=== PATIENT | male | born 1950 | race Caucasian/White ===

== ENCOUNTER → 2021-11-08 | Outpatient (CLI) | payer MEDICARE, OTHER ==
[2021-11-08 12:08] LABS: BASOPHILS % (AUTO) 1 % (0-10); EOSINOPHILS # (AUTO) 0.2 10^3/uL (0.0-0.3); EOSINOPHILS % (AUTO) 5 % (0-10); HEMATOCRIT 46 % (40-54); HEMOGLOBIN 15.6 g/dL (13.3-17.7); LYMPHOCYTES # (AUTO) 1.7 10^3/uL (1.0-4.0); LYMPHOCYTES % (AUTO) 34 % (12-44); MEAN CORPUSCULAR HEMOGLOBIN 30 pg (25-34); MEAN CORPUSCULAR HGB CONC 34 g/dL (32-36); MEAN CORPUSCULAR VOLUME 89 fL (80-99); MEAN PLATELET VOLUME 10.4 fL (9.0-12.2); MONOCYTES # (AUTO) 0.4 10^3/uL (0.0-1.0); MONOCYTES % (AUTO) 9 % (0-12); NEUTROPHILS # (AUTO) 2.4 10^3/uL (1.8-7.8); NEUTROPHILS % (AUTO) 51 % (42-75); PLATELET COUNT 197 10^3/uL (130-400); WHITE BLOOD COUNT 4.8 10^3/uL (4.3-11.0)
[2021-11-08 12:09] LABS: BILIRUBIN,URINE NEGATIVE (NEGATIVE); CLARITY,URINE CLEAR; COLOR,URINE YELLOW; GLUCOSE, URINE (UA) NEGATIVE (NEGATIVE); KETONES,URINE NEGATIVE (NEGATIVE); LEUKOCYTE ESTERASE ,URINE NEGATIVE (NEGATIVE); NITRITE,URINE NEGATIVE (NEGATIVE); PROTEIN,URINE NEGATIVE (NEGATIVE)
[2021-11-08 12:14] LABS: BACTERIA,URINE NEGATIVE /HPF; WBC,URINE 0-2 /HPF
[2021-11-08 12:20] LABS: PROTHROMBIN TIME PATIENT 13.4 SEC (12.2-14.7)
--- NOTE | 2021-11-08 12:22 | Diagnostic Imaging Report ---
INDICATION: Pain. PA and lateral views were obtained FINDINGS: The heart size, mediastinal configuration, and pulmonary vascularity are within normal limits. There is no pleural effusion, pneumothorax, or pneumonia. The osseous structures are unremarkable. IMPRESSION: No acute cardiopulmonary abnormality. Dictated by: Dictated on workstation # [id number]
[2021-11-08 12:25] LABS: CALCIUM 9.5 MG/DL (8.5-10.1); CREATININE SERUM 1.04 MG/DL (0.60-1.30)
== END ==
LOC: CARD 12:00
PROVIDERS: ATTEND Orthopaedic Surgery
DX: Z01.810 Encounter for preprocedural cardiovascular examination (principal); R07.9 Chest pain, unspecified
CPT/HCPCS: 36415; 71046; 80048; 81000; 85025; 85610; 85730; 93005

== ENCOUNTER → 2021-11-08 | Outpatient (CLI) | payer MEDICARE, OTHER ==
--- NOTE | 2021-11-08 10:28 | Diagnostic Imaging Report ---
INDICATION: Left knee pain. TIME OF EXAM: 10:10 AM Multiple views of the left knee were obtained. There is significant medial compartmental degenerative change with complete loss of the joint space. Lateral compartment is fairly well-maintained. There is moderate patellofemoral degenerative change. No fracture, dislocation or effusion is seen. IMPRESSION: Degenerative changes, most marked involving the medial compartment. No acute bony abnormality is detected. Dictated by: Dictated on workstation # [id number]
== END ==
LOC: ORTHO 09:53
PROVIDERS: ATTEND Orthopaedic Surgery
DX: M17.0 Bilateral primary osteoarthritis of knee (principal)
CPT/HCPCS: 73564; G0463; 99203

== ENCOUNTER 2021-11-15 12:12 | Outpatient (RCR) | payer MEDICARE, OTHER ==
[~2021-11-15] VITALS: Ht 170 cm; Wt 98.3 kg
[2021-11-15 13:05] VITALS: BP 135/80
== END 2021-11-15 13:34 | disposition home or self-care (01) ==
LOC: PREOP 12:12
PROVIDERS: ATTEND Orthopaedic Surgery
DX: Z01.812 Encounter for preprocedural laboratory examination (principal); M17.12 Unilateral primary osteoarthritis, left knee; Z20.822 Contact with and (suspected) exposure to COVID-19
CPT/HCPCS: 86850; 86900; 86901; 87081; 87635

== ENCOUNTER 2021-11-19 07:46 | Inpatient (IN) | payer MEDICARE, OTHER ==
[~2021-11-19] VITALS: Ht 170 cm; Wt 98.3 kg
[2021-11-19] VITALS (13 sets, daily range): BP systolic 129–162; BP diastolic 75–112
[2021-11-19] MEDS ORDERED: SODIUM CHLORIDE 0.9% IRRIGATIO 150 ML, TRANEXAMIC ACID INJECTION 3,000 MG IR ONE ×2 (08:30)
[2021-11-19] MEDS ORDERED: ceFAZolin 2 GM IV Premixed 50 ML IV ONE (08:30)
[2021-11-19] MEDS ORDERED: MIDAZOLAM 2 MG/2 ML (VERSED) VIAL ONE (08:36)
[2021-11-19] MEDS ORDERED: BUPIVACAINE 0.25% 30 ML (SENSORCAINE) VIAL ONE (08:36)
[2021-11-19] MEDS: LACTATED RINGERS 1,000 ML IV PRN ×2 (09:06→10:20)
[2021-11-19] MEDS ORDERED: LIDOCAINE PF 2% 5 ML (XYLOCAINE) VIAL ONE (09:38)
[2021-11-19] MEDS ORDERED: proPOfol 200 MG/20 ML (DIPRIVAN) VIAL IV ONE (09:38)
[2021-11-19] MEDS ORDERED: ONDANSETRON 4 MG/2 ML (SDV) Z0FRAN ONE (09:38)
[2021-11-19] MEDS ORDERED: ROCURONIUM 50 MG/5 ML (ZEMURON) VIAL IV ONE (09:38)
[2021-11-19] MEDS ORDERED: fentaNYL INJ 100 MCG/2 ML AMP ONE ×2 (09:38→11:23)
--- NOTE | 2021-11-19 09:40 | Progress Note-Pre Operative ---
Pre-Operative Progress Note H&P Reviewed The H&P was reviewed, patient examined and no changes noted. Date Seen by Provider: Nov 19, 2021 Time Seen by Provider: :30 Date H&P Reviewed: Nov 19, 2021 Time H&P Reviewed: 09:30 Pre-Operative Diagnosis: L Knee Primary OA UMA MINOR MD Nov 19, 2021 09:40
[2021-11-19] MEDS ORDERED: GLYCOPYRROLATE 0.2 MG/ML (ROBINUL) 2 ML VIAL ONE (10:32)
[2021-11-19] MEDS ORDERED: SEVOFLURANE (ULTANE) 15 ML INHAL SOLN ONE (12:14)
--- NOTE | 2021-11-19 12:26 | Operative Report - Ortho ---
Operative Report Surgeon (s)/Driver/Guide (s) Surgeon UMA MINOR MD Driver/Guide n/a Pre-Operative Diagnosis Left Knee Primary Osteoarthritis Post-Operative Diagnosis same Operative Report Date of Procedure: Nov 19, 2021 Name of Procedure Performed: Left Total Knee Arthroplasty Description & Findings After obtaining informed consent and marking the patient in the preoperative holding area, the patient did receive IV antibiotics. Patient was taken to the operating room and anesthesia was induced. Surgical timeout was taken. The left lower extremity was prepped and draped in the usual sterile fashion. Incision was made and carried down to fascia. Arthrotomy was performed on the medial side of the patella. Patella was retracted laterally and knee was flexed. Found to have circumferential osteophtye around the distal femur as well as exposed bone in the medial compartment. Hole was made in the distal femur for the intramedullary distal femoral cutting guide. Resection was made then the femur was sized as a 6. 4-in-1 block for a size [address]. Anterior cut was made and there was no notch. Posterior cut was made followed by the chamfers. Box cut was performed. Lug holes were drilled. Attention was turned to the tibial side, extramedullary tibial guide was put into place and aligned with the tibial crest. It was set to take 2 mm off of the affected medial side. Drop geri was used to confirm alignment. Resection was made and was parallel to the joint line. Tibial bone block was removed. Lamina director of media was put into place and the menisci and posterior osteophytes were removed. The knee was trialed with a size 6 femur and a size 5 tibia with a 9 mm poly trial. It was found to come out to full extension and flexed beyond 120 degrees. It was stable to varus and valgus stress throughout its range of motion. This was accepted. Knee was brought out into extension and the patella was prepared for an inset patellar button. Patellar trial was placed and this tracked well through the groove of the trial femur. Trial implants were removed. Tibial trial was pinned and punched. The cut bone surfaces were lavaged with pulsatile normal saline. Implants were opened and assembled on the back table. Cement was mixed. Cement was applied to the cut bone surface as well as the implant surface. A size 5 tibial component was impacted into placed and excess cement was removed using a [employer]. A size 6 femoral component was impacted into place and excess cement was removed using a [employer]. Tibial tray was lavaged with saline. A 9 mm thick polyethylene component was locked into placed and the locking mechanism was checked. Knee was brought into extension. Patellar surface was irrigated, dried, and then cement was applied. Patellar component was clamped into place and excess cement was removed using the [employer]. The knee was irrigated with normal saline. Irrigation was removed and tranexamic acid was placed. Once the cement had set, the knee was once again trialed; found to come to full extension, flexed beyond 120 degrees, and was stable to varus and valgus stress. Further tranexamic acid was applied for hemostasis. Tourniquet was dropped and electrocautery was used for further hemostasis. Fascial layer was closed with #1 Ethibond. The subcutaneous layer was closed with 2-0 Vicryl. The skin was closed with a running subcuticular 3-0 V-loc. Wound was dressed with mastisol, steri-strips, xeroform, 4x4s, ABD, webril, and KATE wrap. Patient tolerated the procedure well and was stable to the recovery room. Anesthesia Type General plus regional Estimated Blood Loss 150 mL Specimen(s) collected/removed none UMA MINOR MD Nov 19, 2021 12:26
[2021-11-19] MEDS ORDERED: MEPERIDINE (DEMEROL) INJ 50 MG/ML IVP ONE (12:30)
[2021-11-19] MEDS ORDERED: HYDROmorphone 2 MG/ML VIAL (DILAUDID) IV ONE (12:30)
[2021-11-19] MEDS ORDERED: ACETAMINOPHEN 500 MG TAB (TYLENOL) PO PRN (12:30)
[2021-11-19] MEDS ORDERED: MILK OF MAGNESIA 400 MG/5 ML 30 ML UDC PO PRN (12:30)
[2021-11-19] MEDS ORDERED: BISACODYL 5 MG (DULCOLAX) TABLET PO PRN (12:30)
[2021-11-19] MEDS ORDERED: morphine INJ 10 MG/ML 1ML (SYR OR VIAL) IVP ONE (12:30)
[2021-11-19] MEDS ORDERED: ONDANSETRON 4 MG/2 ML (SDV) Z0FRAN IVP PRN (12:30)
[2021-11-19] MEDS ORDERED: ONDANSETRON 4 MG/2 ML (SDV) Z0FRAN IV PRN (12:30)
--- NOTE | 2021-11-19 12:56 | Diagnostic Imaging Report ---
INDICATION: Postop left knee. TIME OF EXAM: 12:35 PM 2 views of the left knee demonstrate postoperative changes of total knee arthroplasty. Prosthetic elements are in good position. No fracture loosening is seen. IMPRESSION: Satisfactory postop appearance to the left knee. Dictated by: Dictated on workstation # [id number]
[2021-11-19] MEDS ORDERED: HYDROmorphone 2 MG/ML VIAL (DILAUDID) ONE (13:05)
[2021-11-19] MEDS ORDERED: NS IV 1000 ML 1,000 ML ONE (14:13)
--- NOTE | 2021-11-19 14:18 | Physical Therapy Evaluation ---
PT Evaluation-General Medical Diagnosis Admission Date Nov 19, 2021 at 07:46 Medical Diagnosis: s/p L TKA Onset Date: Nov 19, 2021 Therapy Diagnosis Therapy Diagnosis: Weakness, debility Precautions Precautions/Isolations: Fall Prevention, Standard Precautions Weight Bear Status Right Lower Extremity: Right Full Weight Bearing Left Lower Extremity: Left Weight Bearing/Tolerated Referral Physician: Butch Reason for Referral: Evaluation/Treatment Medical History Current History s/p elective left TKR Reviewed History: Yes Social History Home: Single Level Current Living Status: Spouse Entry Into Home: Stairs With Railing PT Steps Into Home: 3 Prior Prior Level of Function SCALE: Activities may be completed with or without assistive devices. 5-Nyvkcfmbga-nzbgcdz completes the activity by him/herself with no assistance from a helper. 5-Set-up or Clean-up Assistance-helper sets up or cleans up; patient completes activity. [place] assists only prior to or following the activity. 4-Supervision or Touching Assistance-helper provides verbal cues and/or janae reji/steadying and/or contact guard assistance as patient completes activity. Assistance may be provided throughout the activity or intermittently. 3-Partial/Moderate Assistance-helper does LESS THAN HALF the effort. [place] lifts, holds or supports trunk or limbs, but provides less than half the effort. 2-Substantial/Maximal Assistance-helper does MORE THAN HALF the effort. [place] lifts or holds trunk or limbs and provides more than half the effort. 5-Ddionyeyj-tyurmd does ALL the effort. Patient does none of the effort to complete the activity. Or, the assistance of 2 or more helpers is required for the patient to complete the activity. If activity was not attempted, code reason: 7-Patient Refused. 9-Not Applicable-not attempted and the patient did not perform the activity before the current illness, exacerbation or injury. 10-Not Attempted due to Environmental Limitations-(lack of equipment, weather restraints, etc.). 88-Not Attempted due to Medical Conditions or Safety Concerns. Bed Mobility: 6 Transfers (B,C,W/C): 6 Gait: 6 Stairs: 6 Indoor Mobility (Ambulation): Independent Stairs: Independent Prior Devices Use: None PT Evaluation-Current Subjective Patient presented in bed s/p L TKA on 11/19/21. Patient agrees to application of CPM machine. 09/20/22: Patient presents laying in bed and reports that he didn't sleep very well last night due to pain in L knee. Patient reports that CPM machine was not taken off until 2200 last night. Patient agrees to participate in therapy this morning. Pain Numeric Pain Scale: 4 Location: Left Location Body Site: Knee Pain Description: Acute Objective Patient Orientation: Person, Place, Time, Situation ROM/Strength ROM Lower Extremities CPM set at 0-50 degrees Strength Lower Extremities R LE 4+/5 L LE: not tested due to recent surgery Neuromuscular (Tone, Coordination, Reflexes) grossly intact Sensory Vision: Wears Glasses Hearing: Functional Sensation Right Lower Extremit: Intact Sensation Left Lower Extremity: Intact Transfers Roll Left to Right (QC): 6 Lying to Sitting/Side of Bed(Q: 6 Sit to Stand (QC): 4 Chair/Lus-la-Hpazs Xfer(QC): 4 Gait Does the Patient Walk?: Yes Mode of Locomotion: Walk Anticipated Mode of Locomotion: Walk Walk 10 feet (QC): 4 Walk 50 ft with 2 Turns(QC): 4 Walk 150 ft (QC): 4 Distance: 200' Gait Assistive Device: FWW Comments/Gait Description Patient ambulated for 200' with FWW. Patient ambulated with step to gait pattern at start but moved to a step through gait pattern after some time. Balance Sitting Static: Normal Sitting Dynamic: Normal Standing Static: Normal Standing Dynamic: Fair Treatment CPM started on 11/19/21 at 0-50 degrees. Eval will conclude tomorrow 11/20/21: Supine exercises: quad sets, heel slides, SLR x10 ea seated exercises: LAQ x10 Assessment/Needs Patient performed supine and seated exercises and ambulated during therapy session. Patient required assistance for SLR. Patient ambulated for 200' with FWW and CGA. Patient knee ROM is about 70 degrees of flexion and is still lacking full extension. Rehab Potential: Good PT Alf Goals Internal Salesperson Goals PT Internal Salesperson Goals Time Frame: Nov 24, 2021 Roll Left & Right (QC): 6 Sit to Lying (QC): 6 Lying-Sitting on Side/Bed(QC): 6 Sit to Stand (QC): 6 Chair/Whi-ac-Hgtqz Xfer(QC): 6 Toilet Transfer (QC): 6 Does the Patient Walk: Yes Walk 10 feet (QC): 6 Walk 50ft with 2 Turns (QC): 6 Walk 150 ft (QC): 6 Walking 10ft on Uneven Surface: 6 1 Step (curb) (QC): 6 PT Plan Problem List Problem List: Activity Tolerance, Functional Strength, Safety, Balance, Gait, Transfer, Bed Mobility, ROM Treatment/Plan Treatment Plan: Continue Plan of Care Treatment Plan: Bed Mobility, Education, Functional Activity Susan, Functional Strength, Gait, Safety, Therapeutic Exercise, Transfers Treatment Duration: Nov 24, 2021 Frequency: 11 times per week Estimated Hrs Per Day: .5 hour per day Patient and/or Family Agrees t: Yes Time/GCodes Time In: 735 Time Out: 753 Total Billed Treatment Time: 18 Total Billed Treatment 1 Visit CPM/PADS [id number]; 11 min 11/20/21 1 Visit EVModC 18 min YI MASON PT Nov 19, 2021 14:18
[2021-11-19] MEDS: NS IV 1000 ML 1,000 ML IV SCH (14:37)
[2021-11-19] MEDS: ceFAZolin 2 GM IV Premixed 50 ML IV SCH (17:42)
[2021-11-19] MEDS: ASPIRIN E.C. 81 MG (ECOTRIN) TAB PO SCH (17:43)
[2021-11-19] MEDS: CELECOXIB 100 MG (CeleBREX) CAP PO SCH (20:02)
[2021-11-19] MEDS: DOCUSATE SODIUM 100 MG (COLACE) CAP PO SCH (20:02)
[2021-11-20] MEDS: ceFAZolin 2 GM IV Premixed 50 ML IV SCH ×2 (00:06→10:28)
[2021-11-20] MEDS: morphine INJ 4 MG/ML 1 ML (VIAL/SYRINGE) IVP PRN ×2 (00:06→05:09)
[2021-11-20] MEDS: NS IV 1000 ML 1,000 ML IV SCH ×2 (00:06→10:31)
[2021-11-20 03:10] VITALS: BP 134/73
[2021-11-20] MEDS: MULTIVIT W/MINERALS TAB (THERAGRAN M) PO SCH (05:13)
[2021-11-20 05:25] LABS: HEMOGLOBIN 12.8 g/dL (13.3-17.7)
[2021-11-20 08:00] VITALS: BP 138/70
--- NOTE | 2021-11-20 08:17 | Progress Note - Ortho ---
Progress Note Subjective Date of Exam 11/20/21 Chief Complaint POD #1 L TKA HPI/Events since last exam has had some difficulty with pain, doing well with therapy Review of Systems - Allergies: Coded Allergies: No Known Drug Allergies (Unverified , 11/15/21) Home Meds No Active Prescriptions or Reported Meds Objective Exam L Knee: Dressing C/D/I, +DF of ankle, no s/s of DVT Vital Signs Vital Signs Date Time Temp Pulse Resp B/P (MAP) Pulse Ox O2 Delivery O2 Flow Rate FiO2 11/20/21 08:05 Room Air 11/20/21 03:10 36.0 98 21 134/73 (93) 94 Room Air 11/19/21 23:45 37.7 89 20 129/75 (93) 95 NIV CPAP 11/19/21 19:58 37.9 85 20 129/76 (93) 96 Room Air 11/19/21 19:35 Room Air 11/19/21 16:19 OxyMask 2.00 11/19/21 16:00 36.5 65 20 154/77 (102) 95 Room Air 11/19/21 13:20 16 143/84 (103) 99 OxyMask 2 11/19/21 13:20 OxyMask 2 11/19/21 13:10 Room Air 11/19/21 13:10 36.2 10 145/82 (103) 95 Room Air 11/19/21 13:00 10 162/94 (116) 99 OxyMask 1 11/19/21 12:59 OxyMask 1 11/19/21 12:50 OxyMask 1 11/19/21 12:50 10 154/89 (110) 97 OxyMask 2 11/19/21 12:46 153/98 (116) 11/19/21 12:40 14 155/103 (120) 100 OxyMask 4 11/19/21 12:35 OxyMask 4 11/19/21 12:30 20 152/112 (125) 98 OxyMask 8 11/19/21 12:20 OxyMask 8 11/19/21 12:20 36.2 20 138/96 (110) 94 OxyMask 8 11/19/21 12:00 35.7 63 20 161/84 (109) 99 OxyMask 2.00 I & O 11/20/21 06:59 Intake Total 4040 ml Output Total 1575 ml Balance 2465 ml Lab Results Laboratory Tests 11/20/21 05:06: Hemoglobin 12.8L, Hematocrit 38L Imaging 2 views of the left knee dated 11/19/21 were reviewed from PACS and demonstrated prior total knee arthroplasty with components in good position, no complications Assessment and Plan Assessment s/p L TKA Problem List s/p L TKA Plan PT/OT DVT Prophyalxis Plan for home with home health on Final Diagonsis s/p L TKA Level of the visit: Level 3 (postop global) UMA MINOR MD Nov 20, 2021 08:17
[2021-11-20] MEDS ORDERED: NS IV 1000 ML 1,000 ML IV SCH (09:00)
[2021-11-20] MEDS: ASPIRIN E.C. 81 MG (ECOTRIN) TAB PO SCH ×2 (09:45→18:09)
[2021-11-20] MEDS: CELECOXIB 100 MG (CeleBREX) CAP PO SCH ×2 (09:47→19:10)
[2021-11-20] MEDS: DOCUSATE SODIUM 100 MG (COLACE) CAP PO SCH ×2 (09:47→19:10)
--- NOTE | 2021-11-20 10:29 | Occupational Therapy Eval ---
OT Evaluation-General/PLF Medical Diagnosis Admission Date Nov 19, 2021 at 07:46 Medical Diagnosis: s/p L TKA Onset Date: Nov 19, 2021 Therapy Diagnosis Therapy Diagnosis: reduced adl status Precautions Precautions/Isolations: Fall Prevention, Standard Precautions Weight Bear Status Weight Bearing Restriction: Weight Bearing/Tolerated Location Restriction: L LE Referral Physician: Butch Referral Reason: Evaluation/Treatment Medical History Current History POD 1, L TKA. Pt reports living in a single story home with his . Indep with adls and shares iadl responsibilities with his spouse. He was not using any AD prior to admission. Reviewed History: Yes Social History Home: Single Level Current Living Status: Spouse Entry Into Home: Stairs With Railing Steps Into Home: 3 ADL-Prior Level of Function SCALE: Activities may be completed with or without assistive devices. 6-Innxbkgktt-ngrioic completes the activity by him/herself with no assistance from a helper. 5-Set-up or Clean-up Assistance-helper sets up or cleans up; patient completes activity. [place] assists only prior to or following the activity. 4-Supervision or Touching Assistance-helper provides verbal cues and/or touching/steadying and/or contact guard assistance as patient completes activity. Assistance may be provided throughout the activity or intermittently. 3-Partial/Moderate Assistance-helper does LESS THAN HALF the effort. [place] lifts, holds or supports trunk or limbs, but provides less than half the effort. 2-Substantial/Maximal Assistance-helper does MORE THAN HALF the effort. [place] lifts or holds trunk or limbs and provides more than half the effort. 8-Wyqyyiltc-fbwaoq does ALL the effort. Patient does none of the effort to complete the activity. Or, the assistance of 2 or more helpers is required for the patient to complete the activity. If activity was not attempted, code reason: 7-Patient Refused. 9-Not Applicable-not attempted and the patient did not perform the activity before the current illness, exacerbation or injury. 10-Not Attempted due to Environmental Limitations-(lack of equipment, weather restraints, etc.). 88-Not Attempted due to Medical Conditions or Safety Concerns. Self Care: Independent Functional Cognition: Independent DME/Equipment: Bath Chair (built in shower seat), Grab Bars, Shower Drive Self: Yes OT Current Status Subjective Reports pain as 5/10 in L knee. RN aware Appearance Returned to supine in bed, all needs within reach, Supervisor Modern Languages entering room. Mental Status/Objective Patient Orientation: Person, Place, Situation Attachments: IV Current Glasses/Contacts: Yes Hearing Aids: No Dentures/Partials: No Hand Dominance: Right Upper Extremity ROM WFL Upper Extremity Strength WFL ADL-Treatment Oral Hygiene (QC): 4 On/Off Footwear (QC): 3 Toileting Hygiene (QC): 4 Supine<>sit: Min a to bring LLE back into bed. No difficulties exhibited to don/doff R sock. Pt unable to perform task with L sock due to increased pain and limited ROM. He reports that his will be able to assist post d/c. Sit<>stand: SBA. He ambulated to/from bathroom with CGA and use of walker. Cue for walker placement at toilet. He stood to void, Close supervision for safety, no unsteadiness observed. He stood at sink for grooming tasks, sba-cga for safety. Anticipate improved indep with adls once pain subsides and knee rom improves. Education OT Patient Education: Correct positioning, Modified ADL techniques, Purpose of tx/functional activities, Reviewed precautions, Safety issues, Transfer techniques Teaching Recipient: Patient Teaching Methods: Discussion Response to Teaching: Verbalize Understanding OT Chief Scientist Goals Chief Scientist Goals Time Frame: Nov 24, 2021 Oral Hygiene (QC): 6 Toileting Hygiene (QC): 6 Upper Body Dressing (QC): 5 Lower Body Dressing (QC): 5 1=Demonstrate adherence to instructed precautions during ADL tasks. 2=Patient will verbalize/demonstrate understanding of assistive devices/modifications for ADL. 3=Patient will improve strength/tolerance for activity to enable patient to perform ADL's. OT Education/Plan Problem List/Assessment Assessment: Decreased Activ Tolerance, Impaired Funct Balance, Impaired I ADL's, Impaired Self-Care Skills Discharge Recommendations Plan/Recommendations: Continue POC Therapy Discharge Recommendati: Homemaker Support, Home & Family Treatment Plan/Plan of Care Treatment,Training & Education: Yes Patient would benefit from OT for education, treatment and training to promote independence in ADL's, mobility, safety and/or upper extremity function for ADL's. Plan of Care: ADL Retraining, Functional Mobility, Group Exercise/Act as Ind, UE Funct Exercise/Act Treatment Duration: Nov 24, 2021 Frequency: 5 times per week Estimated Hrs Per Day: .25 hour per day Agreement: Yes Rehab Potential: Good Time/GCodes Start Time: 09:52 Stop Time: 10:08 Total Time Billed (hr/min): 16 Billed Treatment Time 1 visit Ivette Clark OT Nov 20, 2021 10:29
[2021-11-20 12:00] VITALS: BP 136/67
--- NOTE | 2021-11-20 14:09 | Anesthesia-General Post-Op ---
General Patient Condition Mental Status/LOC: Same as Preop Cardiovascular: Satisfactory Nausea/Vomiting: Absent Respiratory: Satisfactory Pain: Controlled Complications: Absent Post Op Complications Complications None Follow Up Care/Instructions Patient Instructions None needed. Anesthesia/Patient Condition Patient Condition Patient is doing well, does C/O a minimal sore throat which is to be expected, stable vital signs, no apparent adverse anesthesia problems. VIPIN PINEDO DO Nov 20, 2021 14:09
--- NOTE | 2021-11-20 14:28 | Physical Therapy Daily Note ---
PT Daily Note-Current Subjective Patient was attempting to get back into bed when PT walked in the room and patient agreed to walk and perform some exercises with therapy. Mental Status Patient Orientation: Person, Place, Time, Situation Transfers SCALE: Activities may be completed with or without assistive devices. 5-Iaxocqgwgh-pfwkeyf completes the activity by him/herself with no assistance from a helper. 5-Set-up or Clean-up Assistance-helper sets up or cleans up; patient completes activity. [place] assists only prior to or following the activity. 4-Supervision or Touching Assistance-helper provides verbal cues and/or touching/steadying and/or contact guard assistance as patient completes activity. Assistance may be provided throughout the activity or intermittently. 3-Partial/Moderate Assistance-helper does LESS THAN HALF the effort. [place] lifts, holds or supports trunk or limbs, but provides less than half the effort. 2-Substantial/Maximal Assistance-helper does MORE THAN HALF the effort. [place] lifts or holds trunk or limbs and provides more than half the effort. 7-Jcldvvruy-cnwoib does ALL the effort. Patient does none of the effort to compl ete the activity. Or, the assistance of 2 or more helpers is required for the patient to complete the activity. If activity was not attempted, code reason: 7-Patient Refused. 9-Not Applicable-not attempted and the patient did not perform the activity before the current illness, exacerbation or injury. 10-Not Attempted due to Environmental Limitations-(lack of equipment, weather restraints, etc.). 88-Not Attempted due to Medical Conditions or Safety Concerns. Sit to Lying (QC): 3 (min) Lying to Sitting/Side of Bed(Q: 3 Sit to Stand (QC): 4 Patient required min assist to lift leg back into bed after therapy session Weight Bearing Right Lower Extremity: Right Full Weight Bearing Left Lower Extremity: Left Weight Bearing/Tolerated Gait Training Does the Patient Walk?: Yes Distance: 175' Walk 10 feet (QC): 4 Walk 50 ft with 2 Turns(QC): 4 Walk 150 ft (QC): 4 Gait Assistive Device: FWW Patient required CGA for ambulation with FWW. Patient reported his knee was starting to get more painful and sore after ambulation Exercises Supine Ex: Quad Set, Heel Slides, Straight leg raise Supine Reps: 10 Seated Therapy Exercises: Long arc quads Seated Reps: 10 Assessment Patient completed ambulation and supine and sitting exercises. Patient had minimal difficulty with exercises but did require slight assistance for him to get his foot back in bed. PT Water Superintendent Goals Water Superintendent Goals PT Water Superintendent Goals Time Frame: Nov 24, 2021 Roll Left & Right (QC): 6 Sit to Lying (QC): 6 Lying-Sitting on Side/Bed(QC): 6 Sit to Stand (QC): 6 Chair/Una-ph-Npfil Xfer(QC): 6 Toilet Transfer (QC): 6 Does the Patient Walk: Yes Walk 10 feet (QC): 6 Walk 50ft with 2 Turns (QC): 6 Walk 150 ft (QC): 6 Walking 10ft on Uneven Surface: 6 1 Step (curb) (QC): 6 PT Plan Problem List Problem List: Activity Tolerance, Functional Strength, Safety, Balance, Gait, Transfer, Bed Mobility, ROM Treatment/Plan Treatment Plan: Continue Plan of Care Treatment Plan: Bed Mobility, Education, Functional Activity Susan, Functional Strength, Gait, Safety, Therapeutic Exercise, Transfers Treatment Duration: Nov 24, 2021 Frequency: 11 times per week Estimated Hrs Per Day: .5 hour per day Patient and/or Family Agrees t: Yes Time/GCodes Time In: 1328 Time Out: 1340 Total Billed Treatment Time: 12 Total Billed Treatment 1 Visit FA 12 min YI MASON PT Nov 20, 2021 14:28
[2021-11-20 16:00] VITALS: BP 137/67
[2021-11-20 20:00] VITALS: BP 144/73
[2021-11-20 23:24] VITALS: BP 152/72
[2021-11-21 03:02] VITALS: BP 138/77
[2021-11-21] MEDS: MULTIVIT W/MINERALS TAB (THERAGRAN M) PO SCH (05:09)
[2021-11-21 06:30] LABS: HEMOGLOBIN 12.1 g/dL (13.3-17.7)
[2021-11-21 08:00] VITALS: BP 131/82
[2021-11-21] MEDS: DOCUSATE SODIUM 100 MG (COLACE) CAP PO SCH ×2 (08:24→19:14)
[2021-11-21] MEDS: CELECOXIB 100 MG (CeleBREX) CAP PO SCH ×2 (08:25→19:14)
[2021-11-21] MEDS: ASPIRIN E.C. 81 MG (ECOTRIN) TAB PO SCH ×2 (08:25→18:34)
--- NOTE | 2021-11-21 08:55 | Physical Therapy Daily Note ---
PT Daily Note-Current Subjective Patient presents sitting in his chair and agrees to participate in therapy. Patient reports that his knee is sore this morning. Pain Numeric Pain Scale: 4 Appearance Patient left post tx in recliner eating breakfast with his call light, tray table and all needs met. Mental Status Patient Orientation: Person, Place, Time, Situation Transfers SCALE: Activities may be completed with or without assistive devices. 1-Gccuhixlrx-wrdbemo completes the activity by him/herself with no assistance from a helper. 5-Set-up or Clean-up Assistance-helper sets up or cleans up; patient completes activity. [place] assists only prior to or following the activity. 4-Supervision or Touching Assistance-helper provides verbal cues and/or touching/steadying and/or contact guard assistance as patient completes activity. Assistance may be provided throughout the activity or intermittently. 3-Partial/Moderate Assistance-helper does LESS THAN HALF the effort. [place] lifts, holds or supports trunk or limbs, but provides less than half the effort. 2-Substantial/Maximal Assistance-helper does MORE THAN HALF the effort. [place] lifts or holds trunk or limbs and provides more than half the effort. 7-Btbwdckgj-axiyij does ALL the effort. Patient does none of the effort to complete the activity. Or, the assistance of 2 or more helpers is required for the patient to complete the activity. If activity was not attempted, code reason: 7-Patient Refused. 9-Not Applicable-not attempted and the patient did not perform the activity before the current illness, exacerbation or injury. 10-Not Attempted due to Environmental Limitations-(lack of equipment, weather restraints, etc.). 88-Not Attempted due to Medical Conditions or Safety Concerns. Sit to Stand (QC): 5 Weight Bearing Right Lower Extremity: Right Full Weight Bearing Left Lower Extremity: Left Weight Bearing/Tolerated Gait Training Distance: 200' Walk 10 feet (QC): 4 Walk 50 ft with 2 Turns(QC): 4 Walk 150 ft (QC): 4 Gait Assistive Device: FWW Patient ambulated with FWW and CGA for 200'. Patient performs a step to gait pattern while ambulating. Exercises Seated Therapy Exercises: Ankle pumps, Sit to stand (5), Long arc quads, Hip flexion Seated Reps: 20 Assessment Current Status: Good Progress Patient ambulated and performed sitting exercises during therapy session. Patient required rest breaks during exercises due to fatigue and weakness in his L knee. PT Prison Goals Chief Airline Radio Operator Goals PT Prison Goals Time Frame: Nov 24, 2021 Roll Left & Right (QC): 6 Sit to Lying (QC): 6 Lying-Sitting on Side/Bed(QC): 6 Sit to Stand (QC): 6 Chair/Qwi-ew-Ylxpb Xfer(QC): 6 Toilet Transfer (QC): 6 Does the Patient Walk: Yes Walk 10 feet (QC): 6 Walk 50ft with 2 Turns (QC): 6 Walk 150 ft (QC): 6 Walking 10ft on Uneven Surface: 6 1 Step (curb) (QC): 6 PT Plan Problem List Problem List: Activity Tolerance, Functional Strength, Safety, Balance, Gait, Transfer, Bed Mobility, ROM Treatment/Plan Treatment Plan: Continue Plan of Care Treatment Plan: Bed Mobility, Education, Functional Activity Susan, Functional Strength, Gait, Safety, Therapeutic Exercise, Transfers Treatment Duration: Nov 24, 2021 Frequency: 11 times per week Estimated Hrs Per Day: .5 hour per day Patient and/or Family Agrees t: Yes Safety Risks/Education Patient Education: Gait Training, Correct Positioning Teaching Recipient: Patient Teaching Methods: Discussion Response to Teaching: Reinforcement Needed Time/GCodes Time In: 811 Time Out: 826 Total Billed Treatment Time: 14 Total Billed Treatment 1 Visit FA 14 min KRISHNA DUMONT PT Nov 21, 2021 08:55
--- NOTE | 2021-11-21 10:26 | Progress Note - Ortho ---
Progress Note Subjective Date of Exam 11/21/21 Chief Complaint POD #2 L TKA HPI/Events since last exam doing well with therapy, pain tolerable, pleased with progress Review of Systems - Allergies: Coded Allergies: No Known Drug Allergies (Unverified , 11/15/21) Home Meds No Active Prescriptions or Reported Meds Objective Exam L Knee: Incision C/D/I, +DF of ankle, no s/s of DVT Vital Signs Vital Signs Date Time Temp Pulse Resp B/P (MAP) Pulse Ox O2 Delivery O2 Flow Rate FiO2 11/21/21 08:00 36.1 77 20 131/82 (98) 96 Room Air 11/21/21 08:00 Room Air 11/21/21 03:02 36.6 90 20 138/77 (97) 95 Room Air 11/20/21 23:24 37.0 89 20 152/72 (98) 93 Room Air 11/20/21 20:00 37.1 83 18 144/73 (96) 97 Room Air 11/20/21 19:06 Room Air 11/20/21 16:00 36.2 80 20 137/67 (90) 94 Room Air 11/20/21 13:59 Room Air 0.00 11/20/21 12:00 36.9 74 18 136/67 (90) 94 Room Air I & O 11/21/21 07:00 Intake Total 1890 ml Output Total 650 ml Balance 1240 ml Lab Results Laboratory Tests 11/21/21 05:57: Hemoglobin 12.1L, Hematocrit 36L Assessment and Plan Assessment s/p L TKA Problem List s/p L TKA Plan PT/OT DVT Prophylaxis Plan for Home with Home Health tomorrow Final Diagonsis s/p L TKA Level of the visit: Level 3 (post op global) UMA MINOR MD Nov 21, 2021 10:26
--- NOTE | 2021-11-21 10:40 | Occupational Ther Daily Note ---
OT Current Status-Daily Note Subjective Reports pain is much better today. Requests to get dress and shave. Appearance Left sitting in recliner, all needs within reach. Mental Status/Objective Patient Orientation: Person, Place, Situation Attachments: IV ADL-Treatment Therapy Code Descriptions/Definitions Functional [place] Measure: 0=Not Assessed/NA 4=Minimal Assistance 1=Total Assistance 5=Supervision or Setup 2=Maximal Assistance 6=Modified [place] 3=Moderate Assistance 7=Complete IndependenceSCALE: Activities may be completed with or without assistive devices. 4-Vjovanoxhc-cputnwj completes the activity by him/herself with no assistance from a helper. 5-Set-up or Clean-up Assistance-helper sets up or cleans up; patient completes activity. [place] assists only prior to or following the activity. 4-Supervision or Touching Assistance-helper provides verbal cues and/or touching/steadying and/or contact guard assistance as patient completes activity. Assistance may be provided throughout the activity or intermittently. 3-Partial/Moderate Assistance-helper does LESS THAN HALF the effort. [place] lifts, holds or supports trunk or limbs, but provides less than half the effort. 2-Substantial/Maximal Assistance-helper does MORE THAN HALF the effort. [place] lifts or holds trunk or limbs and provides more than half the effort. 8-Eaticreqd-qcwuax does ALL the effort. Patient does none of the effort to comp lete the activity. Or, the assistance of 2 or more helpers is required for the patient to complete the activity. If activity was not attempted, code reason: 7-Patient Refused. 9-Not Applicable-not attempted and the patient did not perform the activity before the current illness, exacerbation or injury. 10-Not Attempted due to Environmental Limitations-(lack of equipment, weather restraints, etc.). 88-Not Attempted due to Medical Conditions or Safety Concerns. Oral Hygiene (QC): 6 Upper Body Dressing (QC): 5 Lower Body Dressing (QC): 4 On/Off Footwear: 5 Toileting Hygiene (QC): 6 Toilet Transfer (QC): 6 Sit<>stand: indep. Pt ambulated within room with close supervision and use of walker. No unsteadiness observable this date. He stood at sink for oral care, shaving, and washing face, no assist required. He sat in recliner to don clothing. Pt initially threaded RLE into pants and then was unable to lift LLE in order to thread. OT had him restart and instructed him to thread L first. Post cue, pt able to complete without physical assistance. He stood to manage up to waist without assist. Discussion on care of incision during bathing tasks post d/c. Pt reports understanding. Education OT Patient Education: Correct positioning, Energy conservation, Modified ADL techniques, Progress toward Goal/Update tx plan, Purpose of tx/functional activities, Reviewed precautions, Safety issues Teaching Recipient: Patient Teaching Methods: Discussion Response to Teaching: Verbalize Understanding, Return Demonstration OT Corporate Health Consultant Goals [facility] Goals Time Frame: Nov 24, 2021 Oral Hygiene (QC): 6 Toileting Hygiene (QC): 6 Upper Body Dressing (QC): 5 Lower Body Dressing (QC): 5 1=Demonstrate adherence to instructed precautions during ADL tasks. 2=Patient will verbalize/demonstrate understanding of assistive devices/modifications for ADL. 3=Patient will improve strength/tolerance for activity to enable patient to perform ADL's. OT Education/Plan Problem List/Assessment Assessment: Impaired I ADL's Discharge Recommendations Plan/Recommendations: Discharge/Goals Met Treatment Plan/Plan of Care Treatment,Training & Education: Yes Patient would benefit from OT for education, treatment and training to promote independence in ADL's, mobility, safety and/or upper extremity function for ADL's. Plan of Care: ADL Retraining, Functional Mobility, Group Exercise/Act as Ind, UE Funct Exercise/Act Treatment Duration: Nov 24, 2021 Frequency: 5 times per week Estimated Hrs Per Day: .25 hour per day Agreement: Yes Rehab Potential: Good Time/GCodes Start Time: 09:15 Stop Time: 09:32 Total Time Billed (hr/min): 17 Billed Treatment Time 1 visit ADL Ivette Stout OT Nov 21, 2021 10:40
[2021-11-21 12:00] VITALS: BP 144/77
--- NOTE | 2021-11-21 14:30 | Physical Therapy Daily Note ---
PT Daily Note-Current Subjective Pt. agrees to Tx. Rates pain in his left knee at 5/10. States he has chosen not to take anything except tylenol since 3 am this morning, " I didnt like oxy" Pt. states he has 3 steps to go up to get in his home. Pain Numeric Pain Scale: 5-Moderate Pain Location: Left Location Body Site: Knee Pain Description: Tightness Mental Status Patient Orientation: Normal For Age Transfers SCALE: Activities may be completed with or without assistive devices. 8-Mwoffkfhiz-mvrbfaz completes the activity by him/herself with no assistance from a helper. 5-Set-up or Clean-up Assistance-helper sets up or cleans up; patient completes activity. [place] assists only prior to or following the activity. 4-Supervision or Touching Assistance-helper provides verbal cues and/or touching/steadying and/or contact guard assistance as patient completes activity. Assistance may be provided throughout the activity or intermittently. 3-Partial/Moderate Assistance-helper does LESS THAN HALF the effort. [place] lifts, holds or supports trunk or limbs, but provides less than half the effort. 2-Substantial/Maximal Assistance-helper does MORE THAN HALF the effort. [place] lifts or holds trunk or limbs and provides more than half the effort. 6-Bmxqqqlfb-amkjof does ALL the effort. Patient does none of the effort to complete the activity. Or, the assistance of 2 or more helpers is required for the patient to complete the activity. If activity was not attempted, code reason: 7-Patient Refused. 9-Not Applicable-not attempted and the patient did not perform the activity before the current illness, exacerbation or injury. 10-Not Attempted due to Environmental Limitations-(lack of equipment, weather restraints, etc.). 88-Not Attempted due to Medical Conditions or Safety Concerns. Roll Left & Right (QC): 6 Sit to Lying (QC): 4 Lying to Sitting/Side of Bed(Q: 6 Sit to Stand (QC): 5 Chair/Qsl-ff-Jyvka Xfer(QC): 5 pt. was educated in safety during sit and stand using UEs on arms of chair vs pulling on FWW and to extend LLE during stand to sit to alleviate too much flexion in new knee when sitting. pt. was unable to indep bring LLE up onto bed. not indep in SLR yet. Pt. was educated and demonstrated use of gait belt for sitting/reclined heel slides and hold as well as propping heel for extension stretches. Weight Bearing Right Lower Extremity: Right Full Weight Bearing Left Lower Extremity: Left Weight Bearing/Tolerated Gait Training Does the Patient Walk?: Yes Walk 10 feet (QC): 5 Walk 50 ft with 2 Turns(QC): 5 Walk 150 ft (QC): 5 Gait Persons Needed: 1 Gait Assistive Device: FWW step to gait pattern at first, pt was instructed in extending L knee , heel strike left and working on even step length. this improved during Tx., pt. conts considerable wt bearing on FWW during gait Stair Training Stair Training: Handrails/: 2 handrails #of Steps: 4 4 Steps (QC): 4 Stairs: Pattern: Step to instructed pt. in sequence and use of hands on rails as well as safety with FWW while approaching steps etc. pt. will have assist at home. Pt states he has been using this gait pattern up and down step leading up to this surgery Exercises Supine Ex: Quad Set, Heel Slides, Short Arc Quads, Straight leg raise (assisted) Supine Reps: 15 Treatments gait, TRFs, steps, exercise Assessment Current Status: Good Progress AROM 10 degrees ext to 80 degrees flexion PT Chefs Goals Chefs Goals PT Chefs Goals Time Frame: Nov 24, 2021 Roll Left & Right (QC): 6 Sit to Lying (QC): 6 Lying-Sitting on Side/Bed(QC): 6 Sit to Stand (QC): 6 Chair/Nsp-ws-Dskhp Xfer(QC): 6 Toilet Transfer (QC): 6 Does the Patient Walk: Yes Walk 10 feet (QC): 6 Walk 50ft with 2 Turns (QC): 6 Walk 150 ft (QC): 6 Walking 10ft on Uneven Surface: 6 1 Step (curb) (QC): 6 PT Plan Treatment/Plan Treatment Plan: Continue Plan of Care Treatment Plan: Bed Mobility, Education, Functional Activity Susan, Functional Strength, Gait, Safety, Therapeutic Exercise, Transfers Treatment Duration: Nov 24, 2021 Frequency: 11 times per week Estimated Hrs Per Day: .5 hour per day Patient and/or Family Agrees t: Yes Safety Risks/Education Patient Education: Gait Training, Transfer Techniques, Steps, Correct Positioning, Disease Process, Safety Issues Teaching Recipient: Patient Teaching Methods: Demonstration, Discussion Response to Teaching: Verbalize Understanding, Return Demonstration, Reinforcement Needed Time/GCodes Time In: 1400 Time Out: 1430 Total Billed Treatment Time: 30 Total Billed Treatment 1,GT15m,EX15m CRISTIAN TAPIA AIRCRAFT SHEET METAL MECHANIC Nov 21, 2021 14:30
[2021-11-21 16:00] VITALS: BP 129/84
[2021-11-21 20:01] VITALS: BP 134/74
[2021-11-22 00:59] VITALS: BP 131/73
[2021-11-22] MEDS: MULTIVIT W/MINERALS TAB (THERAGRAN M) PO SCH (06:02)
[2021-11-22] MEDS: DOCUSATE SODIUM 100 MG (COLACE) CAP PO SCH (08:03)
[2021-11-22] MEDS: ASPIRIN E.C. 81 MG (ECOTRIN) TAB PO SCH (08:03)
[2021-11-22] MEDS: CELECOXIB 100 MG (CeleBREX) CAP PO SCH (08:03)
[2021-11-22] MEDS ORDERED: ASPI-1238 PO (08:20)
[2021-11-22] MEDS ORDERED: IBUP-1780 PO (08:20)
--- NOTE | 2021-11-22 08:22 | D/C HH Face to Face Order ---
D/C Face to Face Orders Instructions for Patient Via [facility], Patient Instructions/FollowUp: WBAT on Left Leg; Walker for Assistance; [facility]2 weeks from date of surgery with Dr. Sheng Leavitt Physician to follow Patient: Sheng Leavitt Discharge Diet for Home: Regular Diet Patient Data-Allergies,Ht & Wt Patient Allergies: Coded Allergies: No Known Drug Allergies (Unverified , 11/15/21) Home Health Need/Face to Face Date of Face to Face: Nov 22, 2021 Clinical Findings: Muscle weakness, Pain with ambulation I have seen Pt ayzx-mb-ceny: Yes Discharged To: Home Diagnosis/Conditions: Left Knee Primary Osteoarthritis s/p L TKA Patient is Homebound due to: Muscle weakness, Pain w/ambulation Homebound Status Due to the above stated illness, injury or surgical procedure (medical condition or diagnosis) and associated clinical findings, the patient is homebound because of his/her inability to leave home except with aid of a supportive device and/or person AND leaving the home requires a considerable and taxing effort or is medically contraindicated. Pt req the following assistanc: Walker Home Health Nursing Orders Home Health Services Order: Physical Therapy-Evaluate & Treat Home Health Infusion Therapy Line Start Date: Nov 19, 2021 Certify Stmt I certify that this patient is under my care and that I, a nurse practitioner or a physician; a personal injury legal assistant working with me, had a face to face encounter that - meets the physician face to face encounter requirements with this patient as dated. SHENG LEAVITT MD Nov 22, 2021 08:22
[2021-11-22 08:23] VITALS: BP 130/73
--- NOTE | 2021-11-22 08:23 | Discharge Summary ---
Discharge Summary Hospital Course Hospital Course Date of Admission: Nov 19, 2021 at 07:46 Admission Diagnosis : Family Physician/Provider: Date of Discharge: 11/22/21 Discharge Diagnosis: Left Knee Primary Osteoarthritis Hospital Course: On 11/19/21, patient was admitted and taken to the operating room for left total knee arthroplasty. He tolerated the procedure well and was admitted to regular floor after the procedure. On the night of surgery, he did begin use of the CPM and was started on mechanical DVT prophylaxis. On POD #1, he was started on chemical prophylaxis. He began physical therapy. His pain was controlled on an oral pain medication regimen. On POD #2, he continued to make progress with therapy and arrangements were made for home health physical therapy. On POD #3, he was transitioning positions independently and ambulating well past 100 feet. He was ready for discharge home with home health. Labs and Pending Lab Test: Home Meds Active Ibuprofen 800 Mg Tablet 800 Mg PO Q8H PRN 30 Days Aspirin EC (Aspirin) 81 Mg Tablet.dr 81 Mg PO BID WITH MEALS 12 Days Assessment/Pt Instructions s/p L TKA WBAT with walker; home health therapy for ROM/strengthening/gait training; dry dressing daily Discharge Instructions Discharge Diet: Regular Diet Discharge Physical Examination Vital Signs Vital Signs Date Time Temp Pulse Resp B/P (MAP) Pulse Ox O2 Delivery O2 Flow Rate FiO2 11/22/21 07:30 Room Air 11/22/21 00:59 36.6 85 20 131/73 (92) 95 11/20/21 13:59 0.00 Extremity: Other (Left Knee: Incision C/D/I, +DF of ankle, no s/s of DVT) Allergies: Coded Allergies: No Known Drug Allergies (Unverified , 11/15/21) Discharge Summary Date of Admission Nov 19, 2021 at 07:46 Date of Discharge UMA MINOR MD Nov 22, 2021 08:23
--- NOTE | 2021-11-22 10:07 | Physical Therapy Daily Note ---
PT Daily Note-Current Subjective Patient presents sitting up in his chair and agrees to participate in physical therapy. Patient reports that his knee is sore this morning. Mental Status Patient Orientation: Person, Place, Time, Situation Transfers SCALE: Activities may be completed with or without assistive devices. 1-Bcpdrzmnub-iotxuwy completes the activity by him/herself with no assistance from a helper. 5-Set-up or Clean-up Assistance-helper sets up or cleans up; patient completes activity. [place] assists only prior to or following the activity. 4-Supervision or Touching Assistance-helper provides verbal cues and/or touching/steadying and/or contact guard assistance as patient completes activity. Assistance may be provided throughout the activity or intermittently. 3-Partial/Moderate Assistance-helper does LESS THAN HALF the effort. [place] lifts, holds or supports trunk or limbs, but provides less than half the effort. 2-Substantial/Maximal Assistance-helper does MORE THAN HALF the effort. [place] lifts or holds trunk or limbs and provides more than half the effort. 4-Bwykentxe-npekmu does ALL the effort. Patient does none of the effort to comp lete the activity. Or, the assistance of 2 or more helpers is required for the patient to complete the activity. If activity was not attempted, code reason: 7-Patient Refused. 9-Not Applicable-not attempted and the patient did not perform the activity before the current illness, exacerbation or injury. 10-Not Attempted due to Environmental Limitations-(lack of equipment, weather restraints, etc.). 88-Not Attempted due to Medical Conditions or Safety Concerns. Sit to Stand (QC): 6 Weight Bearing Right Lower Extremity: Right Full Weight Bearing Left Lower Extremity: Left Weight Bearing/Tolerated Gait Training Distance: 200' Walk 10 feet (QC): 6 Walk 50 ft with 2 Turns(QC): 6 Walk 150 ft (QC): 6 Gait Assistive Device: FWW Patient ambulated with FWW independently for 200'. Patient started performing reciprocal gait pattern jail through ambulation. Exercises Seated Therapy Exercises: Ankle pumps, Long arc quads, Hip flexion Seated Reps: 15 Assessment Patient performed seated exercises with ambulation and reported that his knee was starting to feel more sore after therapy session. Patient was fatigued with seated exercises. Patient was educated on importance of performing exercises once he gets home and walking around his house to continue to gain strength and motion in his knee. PT Insurance Counsel Goals Half-Way Goals PT Insurance Counsel Goals Time Frame: Nov 24, 2021 Roll Left & Right (QC): 6 Sit to Lying (QC): 6 Lying-Sitting on Side/Bed(QC): 6 Sit to Stand (QC): 6 Chair/Hff-di-Elidy Xfer(QC): 6 Toilet Transfer (QC): 6 Does the Patient Walk: Yes Walk 10 feet (QC): 6 Walk 50ft with 2 Turns (QC): 6 Walk 150 ft (QC): 6 Walking 10ft on Uneven Surface: 6 1 Step (curb) (QC): 6 PT Plan Problem List Problem List: Activity Tolerance, Functional Strength, Safety, Balance, Gait, Transfer, Bed Mobility, ROM Treatment/Plan Treatment Plan: Continue Plan of Care Treatment Plan: Bed Mobility, Education, Functional Activity Susan, Functional Strength, Gait, Safety, Therapeutic Exercise, Transfers Treatment Duration: Nov 24, 2021 Frequency: 11 times per week Estimated Hrs Per Day: .5 hour per day Patient and/or Family Agrees t: Yes Safety Risks/Education Patient Education: Gait Training, Reviewed Precautions, Safety Issues Teaching Recipient: Patient Teaching Methods: Discussion Time/GCodes Time In: 820 Time Out: 835 Total Billed Treatment Time: 15 Total Billed Treatment 1 Visit FA 15 min YI MASON PT Nov 22, 2021 10:07
[2021-11-22 10:13] VITALS: BP 130/73
== END 2021-11-22 09:55 | disposition home health service (06) | DRG 470 ==
LOC: 4TH 07:46 → SURG 07:47 → 4TH 13:45
PROVIDERS: ADMIT Orthopaedic Surgery; ATTEND Orthopaedic Surgery
PROC: 0SRD0J9 Replacement of Left Knee Joint with Synthetic Substitute, Cemented, Open Approach (ICD-10-PCS; principal; 2021-11-19 09:56)
DX: M17.12 Unilateral primary osteoarthritis, left knee (principal); G47.33 Obstructive sleep apnea (adult) (pediatric); E66.9 Obesity, unspecified; Z68.34 Body mass index [BMI] 34.0-34.9, adult; Z66 Do not resuscitate
CPT/HCPCS: 36415; 73560; 85014; 85018; 86850; 86900; 86901; 94640

== ENCOUNTER → 2021-12-06 | Outpatient (CLI) | payer MEDICARE, OTHER ==
[~2021-12-06] MED LIST: ASPI-1238 PO; IBUP-1780 PO
== END ==
LOC: ORTHO 08:35
PROVIDERS: ATTEND Orthopaedic Surgery
DX: Z47.89 Encounter for other orthopedic aftercare (principal); Z98.890 Other specified postprocedural states

== ENCOUNTER → 2022-01-15 | Outpatient (CLI) | payer MEDICARE, OTHER ==
--- NOTE | 2022-01-15 08:58 | Diagnostic Imaging Report ---
INDICATION: POSTOPERATIVE VISIT COMPARISON: None. FINDINGS: Two views of the left knee were obtained. Expected postoperative changes are seen from left knee total arthroplasty. Femoral and tibial components appear well-seated. There is no evidence of periprosthetic fracture. No unexpected radiopaque foreign bodies are identified. IMPRESSION: Expected postsurgical changes from left knee total arthroplasty, as described above. No unexpected radiopaque foreign bodies. Dictated by: Dictated on workstation # [id number]
== END ==
LOC: ORTHO 08:16
PROVIDERS: ATTEND Orthopaedic Surgery
DX: Z47.89 Encounter for other orthopedic aftercare (principal); Z96.652 Presence of left artificial knee joint
CPT/HCPCS: 73560

== ENCOUNTER → 2022-02-14 | Outpatient (CLI) | payer MEDICARE, OTHER | LOC: ORTHO 09:26 | PROVIDERS: ATTEND Orthopaedic Surgery | DX: Z47.89 Encounter for other orthopedic aftercare (principal) ==

== ENCOUNTER → 2022-07-18 | Outpatient (CLI) | payer MEDICARE, OTHER ==
--- NOTE | 2022-07-18 13:55 | Diagnostic Imaging Report ---
INDICATION: Right knee pain. FINDINGS: 4 views. Standing view does show considerable narrowing of the medial compartment. Mild narrowing of the lateral compartment. There are hypertrophic changes noted both medially and laterally. The patellofemoral joint shows good alignment with normal appearing trochlea. There is hypertrophic change along the patellofemoral joint. IMPRESSION: Moderate severe multi compartmental arthritic disease. Dictated by: Dictated on workstation # [id number]
== END ==
LOC: ORTHO 10:38
PROVIDERS: ATTEND Orthopaedic Surgery
DX: M17.11 Unilateral primary osteoarthritis, right knee (principal)
CPT/HCPCS: 73564; G0463; 99213

== ENCOUNTER 2022-08-22 08:47 | Outpatient (CLI) | payer MEDICARE, OTHER ==
[~2022-08-22] VITALS: Ht 167 cm; Wt 100.0 kg
[2022-08-22 09:12] LABS: BASOPHILS % (AUTO) 0 % (0-10); EOSINOPHILS # (AUTO) 0.2 10^3/uL (0.0-0.3); EOSINOPHILS % (AUTO) 2 % (0-10); HEMATOCRIT 44 % (40-54); HEMOGLOBIN 14.7 g/dL (13.3-17.7); LYMPHOCYTES # (AUTO) 1.6 10^3/uL (1.0-4.0); LYMPHOCYTES % (AUTO) 24 % (12-44); MEAN CORPUSCULAR HEMOGLOBIN 30 pg (25-34); MEAN CORPUSCULAR HGB CONC 34 g/dL (32-36); MEAN CORPUSCULAR VOLUME 90 fL (80-99); MEAN PLATELET VOLUME 10.2 fL (9.0-12.2); MONOCYTES # (AUTO) 0.6 10^3/uL (0.0-1.0); MONOCYTES % (AUTO) 9 % (0-12); NEUTROPHILS # (AUTO) 4.4 10^3/uL (1.8-7.8); NEUTROPHILS % (AUTO) 64 % (42-75); PLATELET COUNT 203 10^3/uL (130-400); WHITE BLOOD COUNT 6.8 10^3/uL (4.3-11.0)
[2022-08-22 09:29] LABS: BILIRUBIN,URINE NEGATIVE (NEGATIVE); CLARITY,URINE CLEAR; COLOR,URINE YELLOW; GLUCOSE, URINE (UA) NEGATIVE (NEGATIVE); KETONES,URINE NEGATIVE (NEGATIVE); LEUKOCYTE ESTERASE ,URINE NEGATIVE (NEGATIVE); NITRITE,URINE NEGATIVE (NEGATIVE); PROTEIN,URINE NEGATIVE (NEGATIVE)
[2022-08-22 09:32] LABS: CALCIUM 9.5 MG/DL (8.5-10.1); CREATININE SERUM 0.93 MG/DL (0.60-1.30); POTASSIUM 4.2 MMOL/L (3.6-5.0)
[2022-08-22 09:37] LABS: BACTERIA,URINE NEGATIVE /HPF
== END 2022-08-22 09:26 ==
LOC: PREOP 08:47
PROVIDERS: ATTEND Orthopaedic Surgery
DX: M17.11 Unilateral primary osteoarthritis, right knee (principal); Z96.651 Presence of right artificial knee joint
CPT/HCPCS: 36415; 80048; 81000; 85025; 87081

== ENCOUNTER → 2022-09-24 | Outpatient (CLI) | payer MEDICARE, OTHER ==
[~2022-09-24] MED LIST changes: +APIX2.5T PO; +OXC5T PO
== END ==
LOC: ORTHO 09:27
PROVIDERS: ATTEND Orthopaedic Surgery
DX: Z96.651 Presence of right artificial knee joint (principal)

== ENCOUNTER → 2022-10-15 | Outpatient (CLI) | payer MEDICARE, OTHER ==
--- NOTE | 2022-10-15 09:41 | Diagnostic Imaging Report ---
INDICATION: FOLLOW UP ORTHOPEDIC ASSESSMENT AFTERCARE COMPARISON: 09/02/2022 FINDINGS: Two views of the right knee were obtained. Expected postoperative changes are seen from right knee total arthroplasty. Femoral and tibial components appear well-seated. There is no evidence of periprosthetic fracture. No unexpected radiopaque foreign bodies are identified. IMPRESSION: Expected postsurgical changes from right knee total arthroplasty, as described above. No unexpected radiopaque foreign bodies. Dictated by: Dictated on workstation # [id number]
== END ==
LOC: ORTHO 09:05
PROVIDERS: ATTEND Orthopaedic Surgery
DX: Z47.89 Encounter for other orthopedic aftercare (principal); Z96.651 Presence of right artificial knee joint
CPT/HCPCS: 73560

== ENCOUNTER → 2023-09-11 | Outpatient (CLI) | payer MEDICARE, OTHER ==
--- NOTE | 2023-09-11 11:52 | Diagnostic Imaging Report ---
EXAMINATION: Bilateral knee two views. HISTORY: Postop. COMPARISON: 10/15/2022. FINDINGS: There are bilateral total knee arthroplasties. Alignment is near-anatomic. There is a small right effusion. No fracture. No dislocation. IMPRESSION: 1. Near-anatomic alignment of bilateral total knee arthroplasties. 2. Small right knee joint effusion. Dictated by: Dictated on workstation # [id number]
== END ==
LOC: ORTHO 08:46
PROVIDERS: ATTEND Orthopaedic Surgery
DX: Z09 Encounter for follow-up examination after completed treatment for conditions other than malignant neoplasm (principal); M25.461 Effusion, right knee
CPT/HCPCS: 73560; G0463; 99213